=== PATIENT | male | born 1950 | race Caucasian/White ===

== ENCOUNTER 2024-01-04 10:57 | Emergency (ER) | payer OTHER, SELFPAY ==
[2024-01-04 11:04] VITALS: BP 159/105
--- NOTE | 2024-01-04 11:21 | ED.GENMED ---
History of Present Illness
General
Chief Complaint: Urinary Symptoms
Source: patient
Exam Limitations: none
Time Seen by Provider: 01/04/24 11:15
Travel History
Have you had any contact with someone who has COVID-19?: No
Do you have any symptoms of coronavirus? Fever > 100 degrees, chills, cough, shortness of breath, sore throat, loss of taste or smell, muscle aches, or headache?: No
History of Present Illness
History of Present Illness:
73-year-old urinary retention. Last urinated at 2 AM. Has had some decreased stream recently. Stopped his prostate medication months ago. No fever or other complaints. Did have brief chest pain earlier but this is resolved.
Past History
Past History
ED Past Medical History: HTN (Simvastatin), Hypercholesterolemia, NIDDM (Metformin), Other (Ablation for SVT) and Other (.)
ED Past Surgical History: Orthopedic (Lumbar back surgeries x 3 for herniated discs. Last operation . Back has been ok since.)
Social History
Tobacco: Former smoker
Alcohol: Occasional
Drug: None
Personal:
Living: alone
Employment: Employed (Resp. Therapist)
Family History
Family History: Other (Noncontributory)
Review of Systems
Review of Systems
All Other Systems: Not applicable
Constitutional: Denies fever
Phy Exam
Physical Exam
Physical Exam:
GENERAL: Alert. Standing on the side of the bed hunched over clearly uncomfortable but nontoxic in appearance
CARDIAC: Regular rate and rhythm without any obvious murmurs.
LUNGS: Clear breath sounds,normal
ABDOMEN: Soft, suprapubic distention. No rebound or guarding no mass or hernia
NEUROLOGICAL: Alert and oriented , grossly non-focal
SKIN: Warm and dry
PSYCH: Normal and appropriate interaction.
Course
Orders/Labs/Results
Orders:
Orders
01/04/24 11:21
Rodriguez Placement- Treatment ONCE
Reason for insertion: Acute Retention
01/04/24 11:45
Urinalysis Reflex To Culture Urgent
Date Specimen was Collected: 01/04/24
Time Specimen was Collected: 11:27
Abnormal Lab Results
01/04/24
11:45
Urine Glucose 3+ A
(Negative)
Vital Signs
Initial and Last Documented VS:
Initial Vital Signs
Temp Pulse Resp BP Pulse Ox
98.4 F 105 18 159/105 97
01/04/24 11:04 01/04/24 11:04 01/04/24 11:04 01/04/24 11:04 01/04/24 11:04
Last Documented Vital Signs
Temp Pulse Resp BP Pulse Ox
98.4 F 86 18 118/72 95
01/04/24 11:04 01/04/24 13:29 01/04/24 13:29 01/04/24 13:29 01/04/24 13:29
*Critical Care Note
Total Time (30-74mins, 75-104mins- exclusive of procedures): Not Applicable
Update Note
Update Note:
Patient was 7 to 800 cc. Feels well. Discharged to follow-up. Will restart his finasteride.
ED Attending Note
-
Portions of this chart may have been created with voice recognition software.� Occasional wrong word or��sound alike� substitutions may have occurred due to the inherent limitations of voice recognition software.
Discharge Plan
Departure
Patient Disposition: Home (Routine Discharge)
Date of Disposition: 01/04/24
Time of Disposition: 11:43
Patient with high blood pressure during this ER visit?: Yes
Discharge Problem:
Acute urinary retention
Instructions: How to Care for Your Rodriguez Catheter, Male, Urinary Retention (DC), BLOOD PRESSURE
Prescriptions:
New
finasteride 5 mg tablet
5 mg PO DAILY Qty: 30 0RF
No Action
simvastatin 20 MG tablet
20 mg PO DAILY
metformin 1,000 MG tablet
1,000 mg PO BID
lisinopril 10 MG tablet
10 mg PO DAILY
meloxicam 15 MG tablet
15 mg PO DAILY
oxycodone-acetaminophen [Endocet] 1 EACH tablet
1 ea PO Q4HPRN PRN (Reason: pain)
metaxalone 800 MG tablet
800 mg PO TID
prednisone 10 MG tablet
10 mg PO .TAPER Qty: 30 0RF
Rx Instructions:
Take 40mg daily x3days, 30mg daily x3days, 20mg daily x3days, 10mg daily x3days.
prednisone 20 MG tablet
40 mg PO DAILY Qty: 10 0RF
cyclobenzaprine 10 MG tablet
10 mg PO TIDPRN PRN (Reason: muscle spasm) Qty: 12 0RF
hydrocodone-acetaminophen [Vicodin] 1 EACH tablet
1 ea PO Q4 PRN (Reason: pain) Qty: 14 0RF
Referrals:
Lucio Valentine MD [Family Provider] -
Ezekiel Nagel MD [Active] - Follow up in 5-7 days
Interventions
Interventions:
*Risk Screen - Suicide Last Done: 01/04/24 11:04
*General Assessment Last Done: 01/04/24 11:04
*Neglect/Abuse Screening Last Done: 01/04/24 11:04
ED- Fall Risk Assessment Last Done: 01/04/24 11:10
*ED COVID-19 Vaccine History Last Done: 01/04/24 11:04
*Nursing Disposition Last Done: 01/04/24 13:29
ED-Male Genitourinary Assessment Last Done: 01/04/24 11:10
Discharge Date and Time
Discharge Date/Time: 01/04/24 13:10
[2024-01-04 11:56] VITALS: BP 109/73
[2024-01-04 11:59] LABS: Urine Albumin Negative (Neg - Trace); Urine Bilirubin Negative (Negative); Urine Character Clear (Clear); Urine Color Yellow; Urine Glucose 3+ (Negative); Urine Ketone Negative (Negative); Urine Leukocyte Negative (Negative); Urine Nitrite Negative (Negative); Urine Occult Blood Negative (Negative); Urine Specific Gravity 1.015 (<1.030); Urine Urobilinogen Negative (Neg - 1+)
--- NOTE | 2024-01-04 13:25 | EDRN ---
Instructed patient on Rodriguez care. Reviewed discharge instructions with patient. Verbalized understanding. Ambulated with steady gait to the lobby.
[2024-01-04 13:29] VITALS: BP 118/72
== END 2024-01-04 13:10 | disposition home or self-care (01) ==
LOC: EMR 10:57
PROVIDERS: EMERGENCY PHYSICIAN Emergency Medicine; FAMILY PHYSICIAN Family Medicine
DX: R33.9 Retention of urine, unspecified (principal); I10 Essential (primary) hypertension; E78.00 Pure hypercholesterolemia, unspecified; E11.9 Type 2 diabetes mellitus without complications; Z79.84 Long term (current) use of oral hypoglycemic drugs; Z87.891 Personal history of nicotine dependence
CPT/HCPCS: 99284; 51798; 51702; 81003